=== PATIENT | male | born 1975 | race Caucasian/White ===

== ENCOUNTER 2018-09-05 10:54 | Emergency (ER) | payer SELFPAY ==
[2018-09-05 10:56] VITALS: BP 216/128; PULSE 107; RESP 20; TEMP 36.4; O2SAT 98; BMI 35.5
--- NOTE | 2018-09-05 11:05 | ED.DCSUM_ITS ---
- ER Visit Summary Date of Service: 09/05/18 Chief Complaint: Dental pain History of Present Illness: The patient is a 42 M with diffuse dental pain, worse in the left maxillary region. Patient has a long history of dental decay. He is awaiting his dental insurance to start. He denies any face swelling or trouble opening his mouth. Denies any trouble breathing, talking, or swallowing. No fevers. Patient also complains that his blood pressures have been high. He is normally on lisinopril and HCTZ but is out. He is requesting a refill. He is denying any symptoms like headache, vision changes, facial droop, weakness, numbness, chest pain, shortness of breath, abdominal pain, or back pain. Physical Examination: Blood pressure 216/128. Afebrile. Patient is alert and oriented. No acute distress. Skin appears normal in color without jaundice or pallor. No rash. No lymphadenopathy. HEENT exam shows diffuse dental decay and fractured teeth secondary to underlying decay. No abscess, facial swelling, tongue elevation, or trismus. Heart regular. No respiratory distress. Moving all extremities. Normal gait. Test Results: None indicated Emergency Department Course and Treatment: Patient will be treated with a course of clindamycin. He also received [place]. His prescription database report was unremarkable. I am worried that anti-inflammatories may raise his pressure further. Will resume HCTZ and lisinopril. He will call 911 for any signs of stroke or heart attack. Referred to dental for follow-up. Referred to Dr. Burger who is on-call for new patients for follow-up regarding his blood pressure. I also discussed smoking cessation. Treatment Plan: As above Disposition: Discharge Impression: 1. Dental pain 2. Hypertension This note was generated with [employer] software. It may contain incorrect words, spelling, and punctuation that were not noted in review of the chart prior to signing ED Disposition - Plan for ED Patient: Chief Complaint: Dental Instructions: ED Tooth Pain Prescriptions: Hydrocodone Bitart/Apap 5-325 [[place] 5MG-325MG] 1 tab PO Q6H PRN PRN 3 Days #12 tab PRN Reason: Pain Hydrochlorothiazide [Hctz] 12.5 mg PO DAILY #30 tab Lisinopril [Zestril] 40 mg PO DAILY #30 tab Clindamycin [Cleocin] 300 mg PO 4X/DAY #80 cap Referrals: Clayton Burger MD [STAFF PHYSICIAN] -
--- NOTE | 2018-09-05 11:10 | DCINST.ED_ITS ---
ED Disposition - Plan for ED Patient: Chief Complaint: Dental Instructions: ED Tooth Pain Prescriptions: Hydrocodone Bitart/Apap 5-325 [[place] 5MG-325MG] 1 tab PO Q6H PRN PRN 3 Days #12 tab PRN Reason: Pain Hydrochlorothiazide [Hctz] 12.5 mg PO DAILY #30 tab Lisinopril [Zestril] 40 mg PO DAILY #30 tab Clindamycin [Cleocin] 300 mg PO 4X/DAY #80 cap Referrals: Clayton Burger MD [STAFF PHYSICIAN] -
[2018-09-05 11:27] VITALS: BP 209/106
--- OUTSIDE RECORDS SUMMARY | 2018-10-30 19:53 | XMS RPT_ITS ---
:1975 Author Organization [facility] Care Team Providers Name Role Phone Jaquan Coombs Attending Unavailable Primay Care Physicia, No Primary Care Unavailable PROBLEMS PROBLEMS DATE TYPE CONDITION / CODE ATTENDING STATUS SOURCE 09/05/2018 Unknown K08.89 - Other Jaquan Coombs Active Y[place] specified [facility] teeth and Repository supporting structures / K08.89(ICD-10) PROCEDURES PROCEDURES No Procedure Records FoundRESULTS RESULTS DISCHARGE INSTRUCTION Observed: 09/05/2018 Status: F Source: [place] 12:04 PM [facility] REPOSITORY [facility] Medical Records Department [address] [place] [address] Discharge Instruction 09/05/18 1106 MR#: [id number] Acct: [id number] Name: ANISH HENRIQUEZ Rep #: [id number] : 1975 42 From: Jaquan Coombs MD PCP: Care Physician, No Primary Status: DEP ER ED Disposition - Plan for ED Patient: Chief Complaint: Dental Instructions: ED Tooth Pain Prescriptions: Hydrocodone Bitart/Apap 5-325 [[place] 5MG-325MG] 1 tab PO Q6H PRN PRN 3 Days #12 tab PRN Reason: Pain Hydrochlorothiazide [Hctz] 12.5 mg PO DAILY #30 tab Lisinopril [Zestril] 40 mg PO DAILY #30 tab Clindamycin [Cleocin] 300 mg PO 4X/DAY #80 cap Referrals: Clayton Burger MD [STAFF PHYSICIAN] - What to do if you have Problems For any increased pain, shortness of breath, bleeding, nausea or vomiting, chest pain, or any unexpected problems, contact your Primary Care Provider. Call [facility] ([phone]) or report to the closest Emergency Room. Call 911 if necessary. 09/05/18 1204 <Electronically signed by Jaquan Coombs MD> Date Jaquan Coombs MD Cosigner Signature (If Indicated): Date CC: No Primary Care Physician EMERGENCY DEPARTMENT Observed: 09/05/2018 Status: F Source: [place] SUMMARY 12:04 PM [facility] REPOSITORY [facility] Medical Records Department [address] [place] [address] Emergency Department Summary 09/05/18 1102 MR#: [id number] Acct: [id number] Name: ANISH HENRIQUEZ Rep #: [id number] : 1975 42 From: Jaquan Coombs MD PCP: Care Physician, No Primary Status: DEP ER - ER Visit Summary Date of Service: 09/05/18 Chief Complaint: Dental pain History of Present Illness: The patient is a 42 M with diffuse dental pain, worse in the left maxillary region. Patient has a long history of dental decay. He is awaiting his dental insurance to start. He denies any face swelling or trouble opening his mouth. Denies any trouble breathing, talking, or swallowing. No fevers. Patient also complains that his blood pressures have been high. He is normally on lisinopril and HCTZ but is out. He is requesting a refill. He is denying any symptoms like headache, vision changes, facial droop, weakness, numbness, chest pain, shortness of breath, abdominal pain, or back pain. Physical Examination: Blood pressure 216/128. Afebrile. Patient is alert and oriented. No acute distress. Skin appears normal in color without jaundice or pallor. No rash. No lymphadenopathy. HEENT exam shows diffuse dental decay and fractured teeth secondary to underlying decay. No abscess, facial swelling, tongue elevation, or trismus. Heart regular. No respiratory distress. Moving all extremities. Normal gait. Test Results: None indicated Emergency Department Course and Treatment: Patient will be treated with a course of clindamycin. He also received [place]. His prescription database report was unremarkable. I am worried that anti-inflammatories may raise his pressure further. Will resume HCTZ and lisinopril. He will call 911 for any signs of stroke or heart attack. Referred to dental for follow-up. Referred to Dr. Burger who is on-call for new patients for follow-up regarding his blood pressure. I also discussed smoking cessation. Treatment Plan: As above Disposition: Discharge Impression: 1. Dental pain 2. Hypertension This note was generated with [employer] software. It may contain incorrect words, spelling, and punctuation that were not noted in review of the chart prior to signing ED Disposition - Plan for ED Patient: Chief Complaint: Dental Instructions: ED Tooth Pain Prescriptions: Hydrocodone Bitart/Apap 5-325 [[place] 5MG-325MG] 1 tab PO Q6H PRN PRN 3 Days #12 tab PRN Reason: Pain Hydrochlorothiazide [Hctz] 12.5 mg PO DAILY #30 tab Lisinopril [Zestril] 40 mg PO DAILY #30 tab Clindamycin [Cleocin] 300 mg PO 4X/DAY #80 cap Referrals: Clayton Burger MD [STAFF PHYSICIAN] - What to do if you have Problems For any increased pain, shortness of breath, bleeding, nausea or vomiting, chest pain, or any unexpected problems, contact your Primary Care Provider. Call [facility] ([phone]) or report to the closest Emergency Room. Call 911 if necessary. 09/05/18 1204 <Electronically signed by Jaquan Coombs MD> Date Jaquan Coombs MD Cosigner Signature (If Indicated): Date CC: No Primary Care Physician ALLERGIES ALLERGIES DATE TYPE / NAME / CODE REACTION SEVERITY SOURCE CODE 09/05/2018 Drug Penicillins/[id number] Anaphylaxis Unknown [place] Allergy/41 0476(RXNORM) [facility] [id number]([place]) Repository 09/05/2018 Drug erythromycin Anaphylaxis Unknown Yen[place] Allergy/41 base/[id number](RX [facility] [id number]([facility]) Repository 09/05/2018 Drug tramadol/[id number] Nausea Unknown Y[place] Allergy/41 0(RXNORM) [facility] [id number]([place]) Repository ENCOUNTERS ENCOUNTERS ADMIT/DISCHARGE ACCOUNT ADMITTING ENCOUNTER LOCATION SOURCE NUMBER CLASS 09/05/2018/ [id number] [place] [facility] ing:ED Repository PAYERS PAYERS ENCOUNTER GUARANTOR PAYER SUBSCRIBER SOURCE 09/05/2018 Anish Philip Ady7 E [facility] [facility] [place] Effective Repository [phone]: [phone]) Date:2018-09-05 [phone] ()
== END 2018-09-05 11:36 | disposition home or self-care (01) ==
LOC: ED 11:34
PROVIDERS: Emergency Provider Emergency Medicine
DX: K08.89 Other specified disorders of teeth and supporting structures (principal); I10 Essential (primary) hypertension; K02.9 Dental caries, unspecified; Z72.0 Tobacco use
CPT/HCPCS: 99282

== ENCOUNTER 2018-11-17 22:58 | Emergency (ER) | payer SELFPAY ==
[2018-11-17 22:59] VITALS: BP 215/125; PULSE 96; RESP 18; TEMP 35.9; O2SAT 97; BMI 36.2
[2018-11-17 23:05] VITALS: BP 210/137; PULSE 80; RESP 18; TEMP 36.6; O2SAT 97
--- NOTE | 2018-11-17 23:20 | ED.DCSUM_ITS ---
- ER Visit Summary Date of Service: 11/17/18 Chief Complaint: Dental pain History of Present Illness: The patient is a 43 M with history of diffuse dental decay. He was seen at [facility] 3 or 4 days ago for dental pain. He was started on clindamycin and was given refills on his blood pressure med ications. Patient states he is been taking Tylenol and ibuprofen without improvement in pain. Patient does have significant history of hypertension. He has been checking his blood pressures daily. He states yesterday his systolic blood pressure was 117 and this morning it was 170. He recently got medical insurance and is planning on seeing [facility] soon to have his teeth pulled. He is also planning on establishing a primary care physician. Physical Examination: Vital signs include blood pressure 215/125, otherwise unremarkable. Patient sitting upright on the side of the bed. He is in no acute distress. Head neck examination does reveal mild left maxillary edema. There is no facial erythema. Intraoral examination reveals diffuse dental decay with edematous gums on the left maxillary surface. There is no trismus. Uvula is midline. He is tolerating secretions well and has a strong voice. Heart is regular rate and rhythm. Lungs sounds are clear. Abdomen is soft nontender. Test Results: [] Emergency Department Course and Treatment: Patient was seen for similar here in September and I reviewed that note. Patient will be treated with [place], home pack given now and a prescription for 10 tabs. He is to follow his blood pressures daily and keep a log. He will follow-up with dentist and primary care physician as soon as possible. Treatment Plan: [] Disposition: Discharge Impression: 1. Odontalgia 2. Hypertension This note was generated with [employer] dictation software. It may contain incorrect words, spelling, and punctuation that were not noted in review of the chart prior to signing ED Disposition - Plan for ED Patient: Referrals: Care Physician,No Primary [Primary Care Provider] -
--- NOTE | 2018-11-17 23:21 | DCINST.ED_ITS ---
ED Disposition - Plan for ED Patient: Disposition: Home or Assisted Living Instructions: ED Tooth Pain Prescriptions: Hydrocodone Bitart/Apap 5-325 [[place] 5MG-325MG] 1 tablet PO Q6H PRN PRN 3 Days #10 tablet PRN Reason: Pain Referrals: Clayton Burger MD [STAFF PHYSICIAN] - Additional Instructions: Follow-up with [facility] as discussed. Monitor your blood pressures daily and keep a log of your readings.
[2018-11-17] MEDS: HYDROcodone Bitartrate/Apap 5/325 Tablet PO (23:40)
[2018-11-17 23:41] VITALS: BP 207/128; PULSE 100; RESP 14; O2SAT 100
--- NOTE | 2018-11-17 23:41 | ED.RN ---
PT GIVEN WRITTEN AND VERBAL DISCHARGE INSTRUCTIONS. EDUCATED ON HOME GOING PRESCRIPTIONS AND HOME BACL. PT EDUCTED NOT TO DRIVE WHEN TAKING NARCOTIC MEDICATION. PT ALSO REPORTS HE HAS NOT TAKEN BP MEDICATION TODAY. PT EDUCATED TO TAKE IT WHEN HE RETUNRS HOME. PT EDUCATED TO MONITOR BP AND FOLLOW UP WITH PCP FOR CONTINUED ELEVATED BP. PT VERBALIZES UNDERSTANDING AND DENIES ANY FURTHER QUESTIONS. AMBULATES OUT OF DEPT BY SELF.
== END 2018-11-17 23:43 | disposition home or self-care (01) ==
PROVIDERS: Emergency Provider Emergency Medicine
DX: K02.9 Dental caries, unspecified (principal); I10 Essential (primary) hypertension; Z72.0 Tobacco use
CPT/HCPCS: 99282

== ENCOUNTER 2019-03-02 23:24 | Emergency (ER) | payer SELFPAY ==
[2019-03-02 23:24] VITALS: BP 190/120; PULSE 95; RESP 18; TEMP 36.1; O2SAT 96; BMI 36.2
== END 2019-03-03 00:08 | disposition left against medical advice (07) ==
LOC: ED 03-03 00:20
PROVIDERS: Emergency Provider Emergency Medicine
DX: R69 Illness, unspecified (principal)

== ENCOUNTER 2019-11-20 22:59 | Emergency (ER) | payer MEDICAID, SELFPAY ==
[2019-11-20 22:59] VITALS: BP 168/98; PULSE 84; RESP 16; O2SAT 97
[2019-11-20 23:00] VITALS: BP 179/106; PULSE 98; RESP 18; TEMP 36.3; O2SAT 99; BMI 35.0
--- NOTE | 2019-11-20 23:31 | RAD_ITS ---
HISTORY: twisted lt ankle c/o lateral lt ankle pain ADDITIONAL HISTORY: None provided. TECHNIQUE: Left ankle 3 views Number of images including paperwork: 3 COMPARISON: None FINDINGS: BONES: No acute fracture. Corticated ossific densities adjacent to the medial, posterior and lateral malleoli. Plantar spur. JOINTS: No subluxation. SOFT TISSUES: Round metallic foreign body in the medial ankle soft tissues. Soft tissue swelling. RAD/Ankle min 3 Views IMPRESSION: No acute osseous abnormality. Round metallic foreign body in the medial ankle soft tissues. Left ankle soft tissue swelling. at 0014 Reported and signed by: Annette Rodriguez MD Electronically Signed: Annette Rodriguez MD at 0:14 EST Tel , Service support ,
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
[2019-11-20 23:55] VITALS: O2SAT 97
[2019-11-21] MEDS: Ibuprofen 400 MG Tablet 800 MG PO (00:35)
[2019-11-21 00:38] VITALS: BP 168/98; PULSE 84; RESP 16; O2SAT 97
== END 2019-11-21 00:39 | disposition home or self-care (01) ==
PROVIDERS: Emergency Provider Emergency Medicine; PCP Internal Medicine
DX: S93.402A Sprain of unspecified ligament of left ankle, initial encounter (principal); S39.012A Strain of muscle, fascia and tendon of lower back, initial encounter; W00.0XXA Fall on same level due to ice and snow, initial encounter; Y93.01 Activity, walking, marching and hiking; Y92.9 Unspecified place or not applicable; I10 Essential (primary) hypertension; E66.9 Obesity, unspecified; Z68.35 Body mass index [BMI] 35.0-35.9, adult; Z72.0 Tobacco use
CPT/HCPCS: 73610; 99283

== ENCOUNTER 2020-01-14 19:27 | Emergency (ER) | payer MEDICAID, SELFPAY ==
[2020-01-14 19:27] VITALS: BP 184/113; PULSE 99; RESP 16; TEMP 36.6; O2SAT 98; BMI 35.7
[2020-01-14 20:09] VITALS: BP 156/103; PULSE 98; RESP 16; O2SAT 97
--- NOTE | 2020-01-14 20:14 | ED.DCSUM_ITS ---
History of Present Illness Chief Complaint: Back Informant: Patient Onset: Days Context: Gradual Onset Injury: Repetitive Motion Timing: Continuous Quality: Aching Location: Lumbar Relieved by: Sitting Narrative: Patient is a 44-year-old male presenting with worsening back pain. Patient states he has a history of back issues. He is previously gotten Flexeril which does help with his symptoms. He is been taking Tylenol with no significant leaf of his pain. The pain does not radiate. It seems to be worse when he is walking or driving. Patient states he has been working extra because he works for [employer]. He also works for gas [employer]. He also notes that he recently got insurance and is trying to get established with a primary care doctor. He is on 3 blood pressure medications and is requesting a refill of his amlodipine 5 mg. Patient denies any red flag symptoms such as fever, midline back pain, urinary incontinence, bowel incontinence or saddle anesthesia. He denies any other complaints or concerns at this time. Prior similar symptoms: Yes, With Prior Back Pain Past Medical History - Allergies and Home Meds Allergies/Adverse Reactions: Allergies erythromycin base Allergy (Verified 01/14/20 19:32) Anaphylaxis Penicillins Allergy (Verified 01/14/20 19:32) Anaphylaxis tramadol Adverse Reaction (Verified 01/14/20 19:32) Nausea Primary Care Physician: Care Physician,No Primary [Primary Care Provider] - Past Medical History: - - HTN Surgical History: noncontributory Smoking Status: Current every day smoker Review of Systems General: Denies: Chills, Fever, Sweats Eyes: Denies: Visual changes - bilaterally, Diplopia ENT: Denies: Rhinorrhea, Sore throat Cardiovascular: Denies: Chest pain, Palpitations Respiratory: Denies: Dyspnea, Cough, Dyspnea on exertion Gastrointestinal: Denies: Abdominal pain, Nausea, Vomiting, Diarrhea, Melena, Hematochezia Genitourinary: Denies: Dysuria, Hematuria, Frequency Musculoskeletal: Reports: Back pain. Denies: Extremity Pain Skin: Denies: Rash, Wounds Neurological: Denies: Headache, Weakness, Numbness Physical Exam Vital Signs/Narrative: Vital Signs Temp Pulse Resp BP Pulse Ox 01/14/20 20:09 98 16 156/103 H 97 01/14/20 19:27 97.8 F 99 16 184/113 H 98 Inital Vital Signs reviewed: Yes General: Well nourished, Well developed, Obese Head: Normocephalic, Atraumatic Eyes: Perrl, EOMI ENT: Moist mucous membranes, No rhinorrhea Neck: Supple, Nontender Cardiovascular: Regular rate, Regular rhythm, No murmurs Respiratory: No distress, CTA bilaterally, Chest nontender Abdomen: Soft, Nontender, Nondistended, Normal bowel sounds Back: Normal Inspection, Paraspinal Tenderness - left paraspinal lumbar, Negative SLR - Right, Negative SLR - Left. Negative for: Spinal tenderness, CVA tenderness Extremeties: Nontender, No edema Skin: Normal color, No rash Neuro: Alert, Oriented, Normal Strength, Normal Sensation, Normal DTR, Normal Gait Psychological: Normal affect Diagnostic/Tx/Re-eval - Medical Decision Making Patient is evaluated for atraumatic low back pain. Appears muscle skeletal. He does have some left paraspinal tenderness in his area of pain. It does not appear consistent with sciatica at this time. He is given Motrin in the emergency room. He will be given a prescription for Flexeril as well as Norvasc per his request. Patient is driving which is why he is not given Flexeril emergency room. He is given a referral to a PCP as well. Patient does not have any red flag symptoms concerning for cauda equina syndrome or epidural abscess. He is neuro vastly intact. Patient is counseled on signs and symptoms requiring return to the emergency room. Patient verbalizes agreement and understand this plan. Patient discharged home in stable and improved condition. ED Disposition - Plan for ED Patient: Disposition: Home or Assisted Living Diagnosis: Lumbago, Hypertension Instructions: ED Back Pain Acute or Chronic Prescriptions: cycloBENZAPRine HCl [Flexeril] 10 mg PO TID PRN #20 tab PRN Reason: Muscle Spasm Transmission Status: Pending to [facility] Ibuprofen [Motrin] 600 mg PO Q8H PRN PRN #20 tab PRN Reason: Pain/Inflammation Transmission Status: Pending to [facility] Amlodipine Besylate [Norvasc] 5 mg PO DAILY #30 tab Transmission Status: Pending to [facility] Referrals: Clayton Burger MD [STAFF PHYSICIAN] -
[2020-01-14] MEDS: Ibuprofen 600 MG Tablet PO (20:22)
[2020-01-14 20:43] VITALS: BP 156/103; PULSE 98; RESP 16; O2SAT 97
== END 2020-01-14 20:43 | disposition home or self-care (01) ==
PROVIDERS: Emergency Provider Emergency Medicine
DX: M54.5 Low back pain (principal); I10 Essential (primary) hypertension; E66.9 Obesity, unspecified; F17.200 Nicotine dependence, unspecified, uncomplicated; Z88.0 Allergy status to penicillin; Z88.1 Allergy status to other antibiotic agents; Z88.5 Allergy status to narcotic agent; Z88.8 Allergy status to other drugs, medicaments and biological substances
CPT/HCPCS: 99283

== ENCOUNTER 2020-04-10 11:38 | Emergency (ER) | payer MEDICAID, SELFPAY ==
[2020-04-10 11:40] VITALS: BP 157/110; PULSE 84; RESP 16; TEMP 35.8; O2SAT 96; BMI 36.2
[2020-04-10 11:51] VITALS: BP 188/116; PULSE 86; RESP 12; O2SAT 99
--- NOTE | 2020-04-10 12:15 | ED.VIS.GEN ---
History of Present Illness Chief Complaint: Hypertension Narrative: Patient presenting with asymptomatic hypertension. Patient is on amlodipine, hydrochlorothiazide, and lisinopril. He has been out of the latter 2 medications over the course of 2 weeks, and is currently trying to reestablish with primary care. Patient reports that he went to urgent care to get his medications refilled and they said that his blood pressure was too high and they could not help him. He denies any chest pain shortness of breath visual changes numbness weakness dyspnea on exertion swelling or any symptoms associated with his hypertension. Review of systems otherwise negative. Past Medical History - Allergies and Home Meds Allergies/Adverse Reactions: Allergies erythromycin base Allergy (Verified 04/10/20 11:40) Anaphylaxis Penicillins Allergy (Verified 04/10/20 11:40) Anaphylaxis tramadol Adverse Reaction (Verified 04/10/20 11:40) Nausea Primary Care Physician: Care Physician,No Primary [Primary Care Provider] - Prior records reviewed: Yes Past Medical History: - - Hypertension Surgical History: noncontributory Smoking Status: Current every day smoker Review of Systems All systems negative except as indicated General: Denies: Chills, Fever, Sweats Eyes: Denies: Visual changes - bilaterally, Diplopia ENT: Denies: Rhinorrhea, Sore throat Cardiovascular: Denies: Chest pain, Palpitations Respiratory: Denies: Dyspnea, Cough, Dyspnea on exertion Gastrointestinal: Denies: Abdominal pain, Nausea, Vomiting, Diarrhea, Melena, Hematochezia Genitourinary: Denies: Dysuria, Hematuria, Frequency Musculoskeletal: Denies: Back pain, Extremity Pain Skin: Denies: Rash, Wounds Neurological: Denies: Headache, Weakness, Numbness Physical Exam Vital Signs/Narrative: Vital Signs Temp Pulse Resp BP Pulse Ox 04/10/20 11:51 86 12 188/116 H 99 04/10/20 11:40 96.5 F L 84 16 157/110 H 96 Inital Vital Signs reviewed: Yes General: Well nourished, Well developed, No Acute Distress Head: Normocephalic, Atraumatic Eyes: Perrl, EOMI ENT: Moist mucous membranes, No rhinorrhea Neck: Supple, Nontender Cardiovascular: Regular rate, Regular rhythm, No murmurs Respiratory: No distress, CTA bilaterally, Chest nontender Abdomen: Soft, Nontender, Nondistended, Normal bowel sounds Back: Nontender, Normal Inspection Extremities: Nontender, No edema Skin: Normal color, No rash Neurological: Alert, Oriented x3, Cranial nerves II-XII grossly intact, Normal Strength, Normal Sensation Psychological: Normal affect, Normal Mood Diagnostic/Tx/Re-eval - Medical Decision Making Patient is presenting with asymptomatic hypertension. Physical exam is benign. He does have hypertension, but given that he is asymptomatic there is no indication for laboratory work-up. Patient will be given refills on his hydrochlorothiazide and lisinopril. He is encouraged to follow-up with primary care for further refills. ED Disposition - Plan for ED Patient: Disposition: Home or Assisted Living Instructions: ED Hypertension Established Prescriptions: Hydrochlorothiazide 12.5 mg PO DAILY #30 tab Prescription Printed Lisinopril 40 mg PO DAILY #30 tab Prescription Printed Additional Instructions: Followup with your PCP
[2020-04-10 12:26] VITALS: BP 178/122; PULSE 80; RESP 14; O2SAT 98
== END 2020-04-10 12:31 | disposition home or self-care (01) ==
LOC: ED 12:23
PROVIDERS: Emergency Provider Emergency Medicine
DX: I10 Essential (primary) hypertension (principal); F17.200 Nicotine dependence, unspecified, uncomplicated; Z88.0 Allergy status to penicillin; Z88.1 Allergy status to other antibiotic agents; Z88.5 Allergy status to narcotic agent; Z88.8 Allergy status to other drugs, medicaments and biological substances
CPT/HCPCS: 99282